=== PATIENT | male | born 1955 | race Caucasian/White ===

== ENCOUNTER 2021-02-19 10:46 | Emergency (ER) | payer MEDICARE, SELFPAY ==
--- NOTE | ~2021-02-19 | XR_ITS ---
XR wrist LT min 3V DATE: 02/19/2021 11:09 INDICATION: Fall. Radial wrist pain. TECHNIQUE: 4 views COMPARISON: None FINDINGS: There is osteoarthritis at the first carpometacarpal, first, second and third metacarpophal angeal and first digit interphalangeal joints. No fracture or dislocation, periosteal reaction or bone destruction. IMPRESSION: Polyarticular osteoarthritis Reviewed, dictated and finalized at location A.
[2021-02-19 10:57] VITALS: BP 142/68; PULSE 58; RESP 16; TEMP 37.2; O2SAT 97
--- NOTE | 2021-02-19 11:14 | PC.NURSE ---
PT DECLINED ICE FOR COMFORT
--- NOTE | 2021-02-19 11:17 | ED.UPPEXIN ---
HPI - Extremity Injury (Upper) General Chief Complaint: Extremity Injury, Upper Stated Complaint: Need Xray on left Wrist Time Seen by Provider: 02/19/21 11:15 Source: patient Mode of arrival: ambulatory Limitations: no limitations History of Present Illness HPI narrative: Jas Mchugh is a 65 yo male with a PMH with high cholesterol, BPH, HSV, who [facility] after fall in the basement across the core where he went face down caught himself with his hands. He has an abrasion on his right knee his left elbow across the bridge of his nose is less left wrist is painful on the palmar medial side although he has good range of motion. He says when he applies pressure to his hand however there is pain Related Data Home Medications Medication Instructions Recorded Confirmed acyclovir 400 mg PO DAILY 02/19/21 02/19/21 atorvastatin 20 mg PO DAILY 02/19/21 02/19/21 bisacodyl 5 mg PO DAILY 02/19/21 02/19/21 hydrochlorothiazide 50 mg PO DAILY 02/19/21 02/19/21 tamsulosin 0.4 mg PO DAILY 02/19/21 02/19/21 Allergies Allergy/AdvReac Type Severity Reaction Status Date / Time codeine Allergy Mild Nausea and Verified 02/19/21 11:05 Vomiting Review of Systems Review of Systems: CONSTITUTIONAL: Denies fever, chills, sweats. EYES: Denies visual changes, redness, discharge. ENT: Denies rhinorrhea, congestion, sore throat, otalgia. CARDIOVASCULAR: Denies chest pain, palpitations, edema. RESPIRATORY: Denies dyspnea, wheezing, cough GASTROINTESTINAL: Denies abdominal pain, nausea, vomiting, diarrhea. GENITOURINARY: Denies dysuria, hematuria, abnormal discharge SKIN: Denies rash or itching. NEUROLOGIC: Denies numbness, or focal weakness. PSYCHIATRIC: Denies anxiety or depression. Left wrist pain after fall yesterday [facility] Past Medical History Medical History BPH (benign prostatic hyperplasia) High cholesterol Family History Family History (Updated 02/19/21 @ 11:27 by Rylee Abdi CNP) Other No chronic problems Social History Social History (Updated 02/19/21 @ 11:27 by Rylee Abdi CNP) Smoking status: Never smoker Alcohol intake: current Comments At time of signature, I agree with nursing past medical, surgical, social and family history. There is no relevant family history pertinent to the presenting complaint. Exam Narrative: GENERAL: This is a well-nourished, well-developed patient, in mild distress. HEAD: normocephalic, atraumatic. EYES: Sclera clear/white. Vision is grossly intact. EARS: External ears normal, . Hearing grossly intact. NOSE: External nose normal without nasal discharge, nares without redness, no rhinorrhea. THROAT: Mucous membranes moist, NECK: Neck supple, CARDIOVASCULAR: Regular rate and rhythm without murmurs, gallops, or rubs. RESPIRATORY: Clear to auscultation. Breath sounds equal bilaterally. No wheezes, rales, or rhonchi. GASTROINTESTINAL: Abdomen soft, SKIN: warm, intact with no suspicious lesions or rash, good texture and turgor. Abrasion to left elbow right knee across bridge of nose NEURO: awake, alert, and oriented to person, place and time. There were no obvious focal neurologic abnormalities. Steady gait EXTREMITIES: Normal range of motion. Left wrist has full range of motion but pain when extends upward on the palmar side BACK: Nontender without deformity Course Course Emergency Course: Patient fell yesterday basement full forward comes up with arms and knee X-ray of left wrist shows no fracture or dislocation, no various ostial reaction just proximal polyarticular osteoarthritis Keep brace on left wrist until pain is resolved may take ibuprofen 600 mg 3 times a day for inflammation and pain should take it with food Vital Signs Vital signs: Vital Signs Temperature 98.9 F 02/19/21 10:57 Pulse Rate 58 L 02/19/21 10:57 Respiratory Rate 16 02/19/21 10:57 Blood Pressure 142/68 H 02/19/21 1
== END 2021-02-19 11:35 | disposition home or self-care (01) ==
PROVIDERS: Emergency Provider Nurse Practitioner
DX: S63.502A Unspecified sprain of left wrist, initial encounter (principal); S66.912A Strain of unspecified muscle, fascia and tendon at wrist and hand level, left hand, initial encounter; W19.XXXA Unspecified fall, initial encounter; N40.0 Benign prostatic hyperplasia without lower urinary tract symptoms; E78.00 Pure hypercholesterolemia, unspecified
CPT/HCPCS: 73110; 99213; G0463